=== PATIENT | male | born 1980 | race Caucasian/White ===

== ENCOUNTER → 2020-06-15 | Outpatient (CLI) | payer BC, OTHER ==
[~2020-06-15] MED LIST: DEXTROAMP-AMPHE20 MG PO
== END ==
LOC: LAB 09:37
PROVIDERS: ATTEND Orthopaedic Surgery Sports Medicine
DX: Z01.812 Encounter for preprocedural laboratory examination (principal); Z20.822 Contact with and (suspected) exposure to COVID-19

== ENCOUNTER 2020-06-19 07:17 | Day surgery (SDC) | payer BC, OTHER ==
[~2020-06-19] VITALS: Ht 182.9 cm; Wt 86.2 kg
--- NOTE | ~2020-06-19 | O ---
[facility] [place] [address] OPERATIVE REPORT Name: RICHARD MCMAHON Room #: 150-4 [facility] Kaya#: [id number] Admission: 06/19/20 Attend Phys: Tate Sykes Discharge: Date of : 80 Report #: [id number] THIS REPORT FOR: cc: FAM - No family physician/PCP FAM - No family physician/PCP Tate Morocho MD ~ PREOPERATIVE DIAGNOSES: Left knee pain, medial meniscus tear, radial flap type, grade 2 chondromalacia of patella. POSTOPERATIVE DIAGNOSES: Left knee pain, medial meniscus tear, radial flap type, grade 2 chondromalacia of patella. PROCEDURES PERFORMED: Left knee arthroscopy, partial medial meniscectomy, chondroplasty of patella. SURGEON: Tate Morocho MD HIDE PASTER: Irma Christy PA-C. ANESTHESIA: General per LMA. FLUIDS: 500 mL crystalloid. TOURNIQUET TIME: Approximately 14 minutes at 300 mmHg. DESCRIPTION OF PROCEDURE: After proper identification of the patient and operative site in preoperative holding area, the operative site was signed by myself. Prophylactic antibiotics given. The patient was brought back to the operative suite after induction of satisfactory general anesthesia per LMA. Tourniquet was applied to the upper thigh. The knee was ligamentously stable. Trace effusion was noted, had symmetric range of motion compared to the opposite side. It was then placed in an arthroscopic leg hernandez. The limb was sterilely prepped and draped in the usual manner, elevated and exsanguinated with an Esmarch. Tourniquet was inflated to 300 mmHg. Superior medial portal was created for inflow purposes. Joint was inflated with an arthroscopic pump set at 30 mmHg. An anterolateral and then an anteromedial portal were created using a spinal needle for localization. Examination of the suprapatellar pouch, medial and lateral gutters revealed no abnormalities. Patellofemoral articulation revealed some thinning and fissuring as well as a small amount of fibrillation about the central apical ridge extending on the lateral patellar facet. This area was carefully debrided and was more superficial in nature. Medial compartment of the knee revealed a displaced flap type tear almost more of a parrot-beak type appearance that involved the posterior horn and mid body. A combination of hand and motorized instrumentation was used to perform a partial medial meniscectomy back to a stable peripheral rim. Some very superficial fibrillation was noted of the more posterior medial femoral condyle. [address] [address] OPERATIVE REPORT Name: RICHARD MCMAHON IV Room #: 150-4 [facility] Kaya#: [id number] Admission: 06/19/20 Attend Phys: Tate Sykes Discharge: Date of : 80 Report #: [id number] The remaining chondral surfaces were intact. Anterior and posterior cruciate ligaments are intact and stable to probing. Lateral compartment of the knee demonstrated no abnormalities. Meniscus was stable to probing. No chondral defects were apparent. The knee was thoroughly irrigated with normal saline. Portals closed with simple nylon stitch. A 20 mL of 0.2% Naropin was injected around the skin edges and into the knee joint to aid in postoperative pain control. Sterile compressive dressing was applied. He was awakened and transferred to the recovery room in stable condition. By: [id number] Tate Morocho MD /nt
[2020-06-19 09:07] VITALS: BP 116/74
[2020-06-19 10:19] VITALS: BP 116/74
== END 2020-06-19 11:35 | disposition home or self-care (01) ==
LOC: OR 07:17 → TBA 07:23 → OR 11:35
PROVIDERS: ATTEND Orthopaedic Surgery Sports Medicine
DX: S83.242A Other tear of medial meniscus, current injury, left knee, initial encounter (principal); X58.XXXA Exposure to other specified factors, initial encounter; M17.12 Unilateral primary osteoarthritis, left knee; M22.42 Chondromalacia patellae, left knee; M25.462 Effusion, left knee; F90.9 Attention-deficit hyperactivity disorder, unspecified type; Z98.890 Other specified postprocedural states
CPT/HCPCS: 50010; 50101; 50405; 56526; 57103; 57180; 62110; 62900; 70005